=== PATIENT | female | born 1975 | race Two or more races ===

== ENCOUNTER 2018-06-08 08:12 | Emergency (ER) | payer MEDICAID ==
[~2018-06-08] VITALS: Ht 162.6 cm; Wt 68.0 kg
[2018-06-08] MEDS ORDERED: methylPREDNISolone SOD SUCC 125 MG/2ML VIAL ONE (08:25)
[2018-06-08] MEDS ORDERED: diphenhydrAMINE HCL 50 MG/ML VIAL ONE (08:25)
[2018-06-08] MEDS ORDERED: ONDANSETRON HCL/PF 4 MG/2 ML VIAL ONE (08:25)
[2018-06-08] MEDS ORDERED: EPINEPHRINE (1:1000) 1 MG/ML AMPUL ONE (08:25)
--- NOTE | 2018-06-08 08:25 | NUR ---
aaox3, bib family c/o nausea and generalized skin hives after eating bread yesterday. RR is even and unlabored with nad noted. skin is warm and dry. Dr Macias at for evmargarita.
[2018-06-08] MEDS ORDERED: FAMOTIDINE/PF INJ 20 MG/2 ML VIAL IV ONE ×2 (08:26→08:30)
[2018-06-08] MEDS ORDERED: ONDANSETRON HCL/PF 4 MG/2 ML VIAL IVP ONE (08:30)
[2018-06-08] MEDS ORDERED: IV NS 0.9% 1,000 ML BAG IV ONE (08:30)
[2018-06-08] MEDS ORDERED: EPINEPHRINE (1:1000) MDV 30 MG/30ML VIAL SUBCUT ONE (08:30)
[2018-06-08] MEDS ORDERED: methylPREDNISolone SOD SUCC 125 MG/2ML VIAL IV ONE (08:30)
[2018-06-08] MEDS ORDERED: diphenhydrAMINE HCL 50 MG/ML VIAL IV ONE (08:30)
--- NOTE | 2018-06-08 08:35 | NUR ---
PROVIDED WARM BLANKET FOR COMFORT.
--- NOTE | 2018-06-08 08:37 | NUR ---
PATIENT STATES THAT SHE FELT BETTER AFTER BENADRYL WAS GIVEN. DR RANKIN MADE AWARE AND ORDERED TO HOLD FOR EPI.
--- NOTE | 2018-06-08 09:34 | NUR ---
IMPROVING SKIN HIVES NOTED.
[2018-06-08 10:35] VITALS: BP 106/68
--- NOTE | 2018-06-08 10:35 | NUR ---
IV removed. Catheter intact and site benign. Pressure and 4x4 applied to site. No bleeding noted.Patient discharged to home in stable condition. Written and verbal after care instructions given. Patient verbalizes understanding of instruction.
== END 2018-06-08 10:36 | disposition home or self-care (01) ==
LOC: ER 08:15
DX: T78.1XXA Other adverse food reactions, not elsewhere classified, initial encounter (principal); L50.9 Urticaria, unspecified; X58.XXXA Exposure to other specified factors, initial encounter
CPT/HCPCS: 96374; 96375; 99283; J1200; J2405; J2930; J3490; J7030; Z7610; J0171

== ENCOUNTER 2022-06-22 10:35 | Emergency (ER) | payer MEDICAID ==
[~2022-06-22] VITALS: Ht 162.6 cm; Wt 78.5 kg
--- NOTE | 2022-06-22 10:38 | NUR ---
BIB FAMILY C/O LEFT SIDED NECK PAIN 03/15 AND SOB X1 DAY, DENIES ANY TRAUMA. AMBULATED TO BED WITH ASSISTANCE, PLACED ON BED AND MONITOR. AWAITING MD ORDERS.
--- NOTE | 2022-06-22 11:08 | NUR ---
ESTABLISHED IV 20G LAC. BLOOD DRAWN AND SENT TO LAB.
[2022-06-22] MEDS ORDERED: CYCLOBENZAPRINE 10 MG TABLET ONE (11:09)
[2022-06-22] MEDS ORDERED: KETOROLAC TROMETHAMINE INJ 30 MG/ML VIAL ONE (11:09)
[2022-06-22] MEDS ORDERED: ONDANSETRON HCL/PF 4 MG/2 ML VIAL ONE (11:09)
--- NOTE | 2022-06-22 11:12 | NUR ---
patient signed waiver
[2022-06-22 11:25] LABS: BASOPHILS % (AUTO) 0.6 % (0.0-2.0); EOSINOPHILS % (AUTO) 1.2 % (0.0-6.0); HEMATOCRIT 35 % (33-45); HEMOGLOBIN 10.8 g/dL (11.5-14.8); LYMPHOCYTES # (AUTO) 2.4 K/uL (0.8-4.8); LYMPHOCYTES % (AUTO) 39.5 % (20.0-44.0); MEAN CORPUSCULAR HGB CONC 31 g/dl (31.0-36.0); MEAN CORPUSCULAR VOLUME 62 fL (82-100); MONOCYTES # (AUTO) 0.4 K/uL (0.1-1.30); MONOCYTES % (AUTO) 6.4 % (2.0-12.0); NEUTROPHILS # (AUTO) 3.2 K/uL (1.8-8.9); NEUTROPHILS % (AUTO) 52.3 % (43.0-81.0); PLATELET COUNT (AUTO) 403 K/uL (150-450); RED BLOOD CELL COUNT(AUTO) 5.65 MIL/uL (4.0-5.2); WHITE BLOOD COUNT (AUTO) 6.1 K/uL (4.3-11.0)
[2022-06-22] MEDS: KETOROLAC TROMETHAMINE INJ 30 MG/ML VIAL IV ONE (11:44)
[2022-06-22] MEDS: ONDANSETRON HCL/PF 4 MG/2 ML VIAL IVP ONE (11:44)
[2022-06-22] MEDS: CYCLOBENZAPRINE 10 MG TABLET PO ONE (11:44)
[2022-06-22 11:52] LABS: ALANINE AMINOTRANSFERASE 41 U/L (12-78); ALBUMIN 4.3 g/dL (3.4-5.0); ALKALINE PHOSPHATASE 81 U/L (46-116); ASPARTATE AMINOTRANSFERASE 17 U/L (15-37); BILIRUBIN,DIRECT 0.1 mg/dL (0.0-0.2); BILIRUBIN,TOTAL 0.4 mg/dL (0.2-1.0); CALCIUM, SERUM 9.7 mg/dL (8.5-10.1); CARBON DIOXIDE 28 mmol/L (21-32); CHLORIDE 103 mmol/L (98-107); CREATININE 0.7 mg/dL (0.6-1.3); GLUCOSE 104 mg/dL (74-106); SODIUM SERUM 138 mmol/L (136-145); TOTAL PROTEIN, SERUM 8.3 g/dL (6.4-8.2); UREA NITROGEN, BLOOD 16 mg/dL (7-18)
[2022-06-22] MEDS ORDERED: NAPR-1164 PO (14:19)
--- NOTE | 2022-06-22 14:36 | NUR ---
Patient discharged to home in stable condition. Written and verbal after care instructions given. Patient verbalizes understanding of instruction.
--- NOTE | 2022-06-22 14:36 | NUR ---
IV removed. Catheter intact and site benign. Pressure and 4x4 applied to site. No bleeding noted.
[2022-06-22 14:37] VITALS: BP 135/76
[2022-06-22 16:49] LABS: LYMPHOCYTES % (MANUAL) 46 % (16-48); MONOCYTES % (MANUAL) 6 % (0-11.0); NEUTROPHILS % (MANUAL) 48 (42-76)
== END 2022-06-22 14:38 | disposition home or self-care (01) ==
LOC: ER 10:45
DX: S13.4XXA Sprain of ligaments of cervical spine, initial encounter (principal); R07.89 Other chest pain; R51.9 Headache, unspecified; Z88.8 Allergy status to other drugs, medicaments and biological substances; X58.XXXA Exposure to other specified factors, initial encounter; Y93.89 Activity, other specified; Y92.89 Other specified places as the place of occurrence of the external cause; Y99.8 Other external cause status
CPT/HCPCS: 99285; 96374; 70450; 71045; 96375; 93005; 85025; 80048; 80076; 36415; 84484 ×2; 85007; J1885; J2405